=== PATIENT | male | born 1980 | race Caucasian/White ===

== ENCOUNTER → 2017-05-03 | Outpatient (CLI) | payer OTHER ==
[~2017-05-03] MED LIST: DABI150C PO
--- NOTE | 2017-05-03 15:04 | DIAGNOSTIC IMAGING REPORT ---
ULTRASOUND RIGHT VENOUS DOPP LOWER EXT UNILAT CLINICAL HISTORY: Right leg pain and swelling COMPARISON STUDY: No previous studies for comparison. FINDINGS: Real-time and color flow Doppler imaging were performed. Flow was seen within the femoral, popliteal and calf veins with no intraluminal thrombus demonstrated. The saphenous vein is patent. IMPRESSION: No evidence of right lower extremity DVT. Electronically signed by: Alhaji Langley M.D. 05/03/2017 3:03 PM Dictated Date/Time: 05/03/2017 3:03 PM
== END | disposition home or self-care (01) ==
LOC: C.ULTRBC 14:40
PROVIDERS: ATTEND Family Medicine Hospice and Palliative Medicine
DX: M79.89 Other specified soft tissue disorders (principal)

== ENCOUNTER → 2017-05-06 | Outpatient (CLI) | payer OTHER ==
--- NOTE | 2017-05-06 11:14 | DIAGNOSTIC IMAGING REPORT ---
ULTRASOUND VENOUS DOPPLER ULTRASOUND THE RIGHT LOWER EXTREMITY CLINICAL HISTORY: I80.9 RIGHT LEG PAIN AND SWELLING COMPARISON STUDY: No previous studies for comparison. FINDINGS: Real-time and color flow Doppler imaging were performed. Flow was seen within the femoral, popliteal and calf veins with no intraluminal thrombus demonstrated. The saphenous vein is patent. There is a superficial thrombus present within the lateral aspect of the right knee and calf. IMPRESSION: 1. No evidence of right lower extremity DVT 2. Thrombosed superficial varicosity involving the right lateral knee and calf region. Electronically signed by: Alhaji Langley M.D. 05/06/2017 11:12 AM Dictated Date/Time: 05/06/2017 11:11 AM
== END | disposition home or self-care (01) ==
LOC: C.ULTR 10:35
PROVIDERS: ATTEND Internal Medicine
DX: I80.9 Phlebitis and thrombophlebitis of unspecified site (principal)

== ENCOUNTER 2019-03-24 14:46 | Inpatient (IN) ==
[2019-03-24] MEDS ORDERED: MoRPHine SULFATE 4 MG/ML 1 ML CARP\\VIAL IV STA (15:44)
[2019-03-24] MEDS ORDERED: ONDANSETRON 4 MG OD TAB PO STA (15:44)
[2019-03-24 16:31] LABS: Hematocrit (blood only) 41.1 % (42-52); Hemoglobin 14.6 g/dL (14.0-18.0); Mean Corpuscular Hgb Conc 35.5 g/dL (32-36); Mean Corpuscular Volume 82.7 fL (80-100); Mean Platelet Volume 9.3 fL (7.4-10.4); Platelet Count 162 K/uL (130-400); RDW Coefficient of Variation 13.5 % (11.5-14.5); RDW Standard Deviation 40.6 fL (36.4-46.3); Red Blood Count 4.97 M/uL (4.7-6.1); White Blood Count 14.08 K/uL (4.8-10.8)
[2019-03-24 16:48] LABS: Albumin Level 3.1 gm/dl (3.4-5.0); BUN Creatinine Ratio 10.6 (10-20); Calcium 9.4 mg/dl (8.5-10.1); Creatinine Clr Calc Pharmacy 116.1 ml/min; Est GFR (African American) 99.7; Potassium 3.8 mmol/L (3.5-5.1)
[2019-03-24 16:51] LABS: Albumin Globulin Ratio 0.8 (0.9-2); Bilirubin,Total 1.1 mg/dl (0.2-1); Globulin 3.9 gm/dl (2.5-4.0)
[2019-03-24 16:57] LABS: Basophils # (auto) 0.01 K/uL (0-0.2); Basophils % (auto) 0.1 %; Eosinophils # (auto) 0.04 K/uL (0-0.5); Eosinophils % (auto) 0.3 %; Immature Granulocytes # (auto) 0.03 K/uL (0.00-0.02); Immature Granulocytes % (auto) 0.2 %; Lymphocytes % (auto) 3.6 %; Monocytes # (auto) 0.54 K/uL (0.11-0.59); Monocytes % (auto) 3.8 %; Neutrophils # (auto) 12.96 K/uL (1.4-6.5)
[2019-03-24] MEDS ORDERED: PIPERACILL/TAZOBAC CONSULT ACTIVE PRN (17:03)
[2019-03-24] MEDS ORDERED: PIPERACILLIN/TAZOBACTAM 4.5 GM/120 ML BAG IV ONE (17:03)
--- NOTE | 2019-03-24 17:06 | CT Scan Report ---
CT abd pelvis wo con CLINICAL HISTORY: 38 years-old Male presenting with lower abdominal pain, hematuria, eval for stone/a ppe. TECHNIQUE: Multidetector CT of the abdomen and pelvis was performed without the use of intravenous co ntrast. IV contrast: None. One or more dose lowering techniques were used consistent with the princip les of ALARA (as low as reasonably achievable), including automatic exposure control, mA or kV adjust ment to individual patient size, and/or use of iterative reconstruction. COMPARISON: None. CT DOSE (mGy.cm): The estimated cumulative dose is 1140.11 mGycm. 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 Lung bases: Normal heart size. No pericardial or pleural effusion. Extensive bandlike opacities at th e lung bases consistent with atelectasis. Liver: Normal morphology. Normal density. Biliary: No gross biliary ductal dilatation allowing for noncontrast technique. Normal gallbladder. Pancreas: Normal noncontrast appearance. Spleen: Normal noncontrast appearance. Adrenal glands: Normal noncontrast appearance. Kidneys and ureters: Punctate nonobstructing calculus at the upper pole the left kidney. Additional 3 mm nonobstructing left renal calculus at the lower pole and a punctate calculus in the interpolar re gion. Otherwise normal noncontrast appearance of the kidneys. No hydronephrosis. Ureters nondistended . Bladder: Incompletely evaluated secondary to underdistention. Circumferential bladder wall thickening is suggested. Perivesicular fat infiltration including in the prevesical space. The bladder dome is abutted by a large gas-containing 5.6 cm collection described below. Pelvic organs: Normal noncontrast appearance. Bowel: Diverticulosis of the sigmoid colon and distal descending colon. Wall thickening with severe p ericolonic inflammatory change in the mid sigmoid colon. Adjacent 5.6 cm collection along the inferio r and medial aspect of the mid to distal sigmoid colon along the dome of the bladder. This collection primarily contains gas and trace fluid. No bowel obstruction. High density material within the appen diceal base may represent prior contrast or appendicoliths. Trace peritoneal thickening along the michael endix is nonspecific given the normal diameter of the appendix and otherwise normal appearance. Peritoneal cavity: Significant free intraperitoneal gas in the upper abdomen as well as numerous foci of gas throughout the abdomen extending into the superior pelvis at the site of the diverticulitis. Loculated largely gas containing fluid collection in the superior pelvis as mentioned. No significant free intraperitoneal fluid. Fat infiltration and/or fluid along the extraperitoneal pelvis. Lymph nodes: No gross lymphadenopathy allowing for noncontrast technique. Vasculature: Normal noncontrast appearance. Abdominal wall: Normal. Musculoskeletal: Normal. IMPRESSION: 1. Acute complicated diverticulitis of the sigmoid colon, which is perforated. Significant free intr aperitoneal gas extending into the upper abdomen. Surgical consultation is necessary. 2. Loculated large gas containing fluid collection adjacent to the sigmoid colon with only trace flu id. This may represent a sequestered component of the perforation and/or developing abscess. 3. Circumferential bladder wall thickening and extensive perivesicular inflammatory changes likely s econdary. 4. Nonobstructing left nephrolithiasis. These findings were discussed with Dr. Hernandez by Dr. Cabral on 03/24/2019 4:57 PM. Electronically signed by: Froilan Cabral M.D. 03/24/2019 5:05 PM
[2019-03-24] MEDS ORDERED: HYDROmorphone INJ 0.5 MG/0.5 ML SYR IV STA (17:36)
--- NOTE | 2019-03-24 18:10 | History & Physical Report ---
Date of Service March 24, 2019 Assessment & Plan (1) Diverticulitis large intestine: This patient has what appears to be perforated diverticulitis with free air and peritonitis. He appears ill. His white count is elevated. I have discussed options with him that include antibiotics but I do not know that that is appropriate in this particular case due to the significant peritonitis. We are planning for exploratory laparotomy with resection and colostomy formation. I explained to him the procedure and the possible complications and I answered his questions. His was also present. He has signed a consent form. Present on Admission?: Yes History of Present Illness The pain is exacerbated by motion Chief Complaint: Abdominal pain Primary Care Provider: Nathaniel Monreal MD This is a 38-year-old male who presented to the emergency room with a complaint of abdominal pain that began 3 days ago. The most severe discomfort is in the lower abdomen mostly in the midline but he has discomfort throughout. The discomfort is increasing in intensity and is now 10 out of 10. He has had dive rticulitis about a year ago that was treated with antibiotics. He has not had colonoscopy. The pain was associated with nausea but he has not vomited. He thinks that he had a fever but he did not take his temperature. He has had soft stool last night which is unusual for him. His bowel habits are regular and he usually has formed stool. He had no melena or hematochezia. He does have burning on urination that he had not had before. He had dysuria. He is unsure as to whether or not he had hematuria. He thinks there may have been some blood when he last urinated. He denies pneumaturia. Allergies Allergy/AdvReac Type Severity Reaction Status Date / Time No Known Allergies Allergy Verified 03/24/19 16:22 Home Medications Home Medications Medication Instructions Recorded Confirmed Type acetaminophen [Tylenol Extra 1,000 mg PO Q6H PRN 03/24/19 03/24/19 History Strength] ibuprofen [Advil] 400 mg PO Q6H PRN 03/24/19 03/24/19 History Past Med/Surg History Medical History Diverticulitis No chronic diseases present No significant past surgical history Surgical History S/P arthroscopic knee surgery Bilateral S/P tonsillectomy and adenoidectomy Family History Other No pertinent family history in first degree relatives Social History Feels Safe at Home: Yes Smoking Status: Current every day smoker Hx Alcohol Use: Yes Review of Systems Review of Systems: All systems reviewed & are unremarkable except as noted in HPI & below Physical Exam Constitutional: + acute distress and + ill appearing Respiratory: normal respiratory effort, lungs clear to auscultation Cardiovascular: Rate/Rhythm: regular rate and regular rhythm Gastrointestinal (Abdomen): Inspection/Auscultation: + hypoactive bowel sounds; abdomen not distended Percussion/Palpation: + abdomen tender (Exquisite tenderness in the lower abdomen with significant tenderness in the upper abdomen), + guarding and abdomen soft; no abdominal mass Skin: no rashes, warm and dry Lymphatic: no cervical lymphadenopathy Results & Data Vital Signs (Past 12 Hours) Vital Signs Temp Pulse Pulse Resp BP BP Pulse Ox 03/24/19 17:31 85 28 H 142/76 H 95 03/24/19 17:30 89 24 93 03/24/19 17:20 96 H 18 95 03/24/19 17:10 84 18 93 03/24/19 17:08 82 19 93 03/24/19 16:23 85 13 137/77 93 03/24/19 14:51 36.8 C 109 H 20 113/69 96 Laboratory Results 03/24/19 03/24/19 Range/Units 16:14 16:14 WBC 14.08 H (4.8-10.8) K/uL RBC 4.97 (4.7-6.1) M/uL Hgb 14.6 (14.0-18.0) g/dL Hct 41.1 L (42-52) % MCV 82.7 (80-100) fL MCH 29.4 (25-34) pg MCHC 35.5 (32-36) g/dL RDW Std Deviation 40.6 (36.4-46.3) fL RDW Coeff of Sulema 13.5 (11.5-14.5) % Plt Count 162 (130-400) K/uL MPV 9.3 (7.4-10.4) fL Immature Gran % (Auto) 0.2 % Neut % (Auto) 92.0 % Lymph % (Auto) 3.6 % Hardin % (Auto) 3.8 % Eos % (Auto) 0.3 % Baso % (Auto) 0.1 % Immature Gran # (Auto) 0.03 H (0.00-0.02) K/uL Neut # (Auto) 12.96 H (1.4-6.5) K/uL Lymph # (Auto) 0.50 L (1.2-3.4) K/uL Hardin # (Auto) 0.54 (0.11-0.59) K/uL Eos # (Auto) 0.04 (0-0.5) K/uL Baso # (Auto) 0.01 (0-0.2) K/uL Sodium 139 (136-145) mmol/L Potassium 3.8 (3.5-5.1) mmol/L Chloride 108 H (98-107) mmol/L Carbon Dioxide 25 (21-32) mmol/L Anion Gap 6.0 (3-11) BUN 11 (7-18) mg/dl Creatinine 1.08 (0.6-1.4) mg/dl Est Cr Clr Drug Dosing 116.1 ml/min Est GFR ( Amer) 99.7 Est GFR (Non-Af Amer) 86.0 BUN/Creatinine Ratio 10.6 (10-20) Glucose 131 H (70-99) mg/dl Calcium 9.4 (8.5-10.1) mg/dl Total Bilirubin 1.1 H (0.2-1) mg/dl AST 10 L (15-37) U/L ALT 25 (12-78) U/L Alkaline Phosphatase 74 (45-117) U/L Total Protein 7.0 (6.4-8.2) gm/dl Albumin 3.1 L (3.4-5.0) gm/dl Globulin 3.9 (2.5-4.0) gm/dl Albumin/Globulin Ratio 0.8 L (0.9-2) Lipase 60 L (73-393) U/L Diagnostic Findings CT abd pelvis wo con CLINICAL HISTORY: 38 years-old Male presenting with lower abdominal pain, hematuria, eval for stone/appe. TECHNIQUE: Multidetector CT of the abdomen and pelvis was performed without the use of intravenous contrast. IV contrast: None. One or more dose lowering techniques were used consistent with the principles of ALARA (as low as reasonably achievable), including automatic exposure control, mA or kV adjustment to individual patient size, and/or use of iterative reconstruction. COMPARISON: None. CT DOSE (mGy.cm): The estimated cumulative dose is 1140.11 mGycm. 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 Lung bases: Normal heart size. No pericardial or pleural effusion. Extensive bandlike opacities at the lung bases consistent with atelectasis. Liver: Normal morphology. Normal density. Biliary: No gross biliary ductal dilatation allowing for noncontrast technique. Normal gallbladder. Pancreas: Normal noncontrast appearance. Spleen: Normal noncontrast appearance. Adrenal glands: Normal noncontrast appearance. Kidneys and ureters: Punctate nonobstructing calculus at the upper pole the left kidney. Additional 3 mm nonobstructing left renal calculus at the lower pole and a punctate calculus in the interpolar region. Otherwise normal noncontrast appearance of the kidneys. No hydronephrosis. Ureters nondistended. Bladder: Incompletely evaluated secondary to underdistention. Circumferential bladder wall thickening is suggested. Perivesicular fat infiltration including in the prevesical space. The bladder dome is abutted by a large gas-containing 5.6 cm collection described below. Pelvic organs: Normal noncontrast appearance. Bowel: Diverticulosis of the sigmoid colon and distal descending colon. Wall thickening with severe pericolonic inflammatory change in the mid sigmoid colon. Adjacent 5.6 cm collection along the inferior and medial aspect of the mid to distal sigmoid colon along the dome of the bladder. This collection primarily contains gas and trace fluid. No bowel obstruction. High density material within the appendiceal base may represent prior contrast or appendicoliths. Trace peritoneal thickening along the appendix is nonspecific given the normal diameter of the appendix and otherwise normal appearance. Peritoneal cavity: Significant free intraperitoneal gas in the upper abdomen as well as numerous foci of gas throughout the abdomen extending into the superior pelvis at the site of the diverticulitis. Loculated largely gas containing fluid collection in the superior pelvis as mentioned. No significant free intraperitoneal fluid. Fat infiltration and/or fluid along the extraperitoneal pelvis. Lymph nodes: No gross lymphadenopathy allowing for noncontrast technique. Vasculature: Normal noncontrast appearance. Abdominal wall: Normal. Musculoskeletal: Normal. IMPRESSION: 1. Acute complicated diverticulitis of the sigmoid colon, which is perforated. Significant free intraperitoneal gas extending into the upper abdomen. Surgical consultation is necessary. 2. Loculated large gas containing fluid collection adjacent to the sigmoid colon with only trace fluid. This may represent a sequestered component of the perforation and/or developing abscess. 3. Circumferential bladder wall thickening and extensive perivesicular inflammatory changes likely secondary. 4. Nonobstructing left nephrolithiasis. (1) Diverticulitis large intestine Diverticulitis bleeding: without bleeding Diverticulitis complication: with perforation and abscess Qualified Code(s): K57.20 - Diverticulitis of large intestine with perforation and abscess without bleeding
[2019-03-24] MEDS ORDERED: MIDAZOLAM HCL 1 MG/ML 2ML VIAL ONE (18:26)
[2019-03-24] MEDS ORDERED: fentaNYL citrate 100 MCG/2 ML VIAL ONE ×2 (18:27→21:32)
--- NOTE | 2019-03-24 18:43 | Anesthesiology Consultation ---
Date of Service March 24, 2019 Assessment & Plan (1) Encounter for pre-operative examination: Chart Review Chart Review: Acceptable Risk for Surgery and Patient NOT seen in Pre Admission Testing Consults Requested none History Surgery Operation Date: 03/24/19 18:15 Proposed Procedures p Exploratory Laparotomy - Nicola Powers MD s Bowel Resection - Nicola Powers MD Height/Weight Height: 6 ft Weight: 107 kg Allergies Allergy/AdvReac Type Severity Reaction Status Date / Time No Known Allergies Allergy Verified 03/24/19 18:42 Medications Home Medications Medication Instructions Recorded Confirmed Last Taken acetaminophen [Tylenol Extra 1,000 mg PO Q6H PRN 03/24/19 03/24/19 Unknown Strength] ibuprofen [Advil] 400 mg PO Q6H PRN 03/24/19 03/24/19 Unknown NPO Date Last Intake of Fluids: 03/24/19 Time Last Intake of Fluids: 15:00 Date Last Intake of Solids: 03/23/19 Time Last Intake of Solids: 20:00 Past Medical History Medical History Diverticulitis No chronic diseases present No significant past surgical history history of blood clots Exercise / Class Metabolic Activity II 4-5 Yardwork/Stairs/Walk up hill Past Family History Family History Other No pertinent family history in first degree relatives Past Surgical History Surgical History S/P arthroscopic knee surgery Bilateral S/P tonsillectomy and adenoidectomy Past Anesthesia History No Hx of Anesthesia Complications and No Family Hx of Anesthesia Complications History of PONV No Hx of PONV and No Hx of Motion Sickness Social History Smoking Status: Current every day smoker Hx Alcohol Use: Yes Hx Substance Use: No Physical Exam Vital Signs Last Vital Signs Temp 37.2 C 03/24/19 18:35 Pulse 97 H 03/24/19 18:35 Resp 20 03/24/19 18:35 BP 132/73 03/24/19 18:35 Pulse Ox 96 03/24/19 18:35 Testing Laboratory Results 03/24/19 16:14 03/24/19 16:14
[2019-03-24] MEDS ORDERED: ePHEDrine sulfate 50 MG/ML AMP IV PRN (18:46)
[2019-03-24] MEDS ORDERED: ONDANSETRON INJ 2 MG/ML 2 ML VIAL IV PRN ×2 (18:46→22:24)
[2019-03-24] MEDS ORDERED: HYDROmorphone INJ 2 MG/ML SYR/VIAL IV PRN (18:46)
[2019-03-24] MEDS ORDERED: fentaNYL citrate 100 MCG/2 ML VIAL IV PRN (18:46)
[2019-03-24] MEDS ORDERED: ATROPINE SULFATE 0.1 MG/ML 10ML SYR IV PRN (18:46)
[2019-03-24] MEDS ORDERED: ALBUMIN HUMAN 5% 12.5 GM/250 ML VIAL IV ONE (18:52)
--- NOTE | 2019-03-24 19:11 | Emergency Department Note ---
Entered by Lam Ramon acting as a scribe for History of Present Illness General Chief complaint: Abdominal Pain Stated complaint: ABDOMINAL PAIN Source: patient History of Present Illness Provider complaint: Abdominal pain Onset (ago): day(s) 3 Location: abdomen Radiation: non-radiation Pain Consistency: + constant Maximum Pain Intensity: 8 Quality: + sharp and + other (Cramping) Relieved By: + none Exacerbated By: + none Associated symptoms: + fever/chills, + loss of appetite and + other (Positive urinary symptoms); no nausea/vomiting The patient is a 38 year old male who presents to the Emergency Room with complaints of constant abdominal pain that started about 3 days ago. The patient states the pain is from his groin up to his rib cage more in the midline of the abdomen. He describes the upper abdominal pain as sharp, while the lower abdominal pain is more of a cramping sensation that is worse with moving his bowels. The patient is also having urinary symptoms including hematuria and dysuria. The patient has not been eating as much as he normally does, but when he does eat his symptoms are unaffected. He also has had intermittent fevers since the start of his abdominal symptoms. He denies any vomiting or diarrhea. He has a history of diverticulitis and he still has his appendix. Home Medications Home Medications Medication Instructions Recorded Confirmed Type acetaminophen [Tylenol Extra 1,000 mg PO Q6H PRN 03/24/19 03/24/19 History Strength] ibuprofen [Advil] 400 mg PO Q6H PRN 03/24/19 03/24/19 History Allergies Allergy/AdvReac Type Severity Reaction Status Date / Time No Known Allergies Allergy Verified 03/24/19 18:42 Past Med/Surg History Medical History Diverticulitis No chronic diseases present No significant past surgical history Surgical History S/P arthroscopic knee surgery Bilateral S/P tonsillectomy and adenoidectomy Family History Other No pertinent family history in first degree relatives Social History Feels Safe at Home: Yes Smoking Status: Current every day smoker Hx Alcohol Use: Yes Hx Substance Use: No Review of Systems See HPI for pertinent positives & negatives. and A total of 10 systems reviewed and were otherwise negative Physical Exam Vital Signs Vital Signs - 24 hr 03/24/19 14:51 03/24/19 16:23 03/24/19 17:08 Temperature 36.8 C Temperature Source Oral Sepsis Recent Fever Within 48 Hours No Sepsis New/Unexplained Change in Mental Status No Sepsis Action Taken by Nursing No Action Required Pulse Rate 109 H 82 Pulse Rate [Finger] 85 Pulse Rate from SpO2 Sensor 82 Pulse Rhythm [Finger] Pulse Strength [Finger] Respiratory Rate 20 13 19 Respiratory Effort / Characteristics Respiratory Depth Blood Pressure 113/69 Blood Pressure [Right Arm] 137/77 Blood Pressure Mean 83 Blood Pressure Mean [Right Arm] 97 Blood Pressure Position [Right Arm] Pulse Oximetry 96 93 93 Oxygen Delivery Method Room Air Room Air 03/24/19 17:10 03/24/19 17:20 03/24/19 17:30 Temperature Temperature Source Sepsis Recent Fever Within 48 Hours Sepsis New/Unexplained Change in Mental Status Sepsis Action Taken by Nursing Pulse Rate 84 96 H 89 Pulse Rate [Finger] Pulse Rate from SpO2 Sensor 84 93 H 81 Pulse Rhythm [Finger] Pulse Strength [Finger] Respiratory Rate 18 18 24 Respiratory Effort / Characteristics Respiratory Depth Blood Pressure Blood Pressure [Right Arm] Blood Pressure Mean Blood Pressure Mean [Right Arm] Blood Pressure Position [Right Arm] Pulse Oximetry 93 95 93 Oxygen Delivery Method 03/24/19 17:31 03/24/19 17:32 03/24/19 17:40 Temperature Temperature Source Sepsis Recent Fever Within 48 Hours Sepsis New/Unexplained Change in Mental Status Sepsis Action Taken by Nursing Pulse Rate 85 103 H 85 Pulse Rate [Finger] Pulse Rate from SpO2 Sensor 84 102 H 85 Pulse Rhythm [Finger] Pulse Strength [Finger] Respiratory Rate 28 H 19 23 Respiratory Effort / Characteristics Respiratory Depth Blood Pressure 142/76 H Blood Pressure [Right Arm] Blood Pressure Mean 98 Blood Pressure Mean [Right Arm] Blood Pressure Position [Right Arm] Pulse Oximetry 95 96 96 Oxygen Delivery Method 03/24/19 17:50 03/24/19 18:00 03/24/19 18:10 Temperature Temperature Source Sepsis Recent Fever Within 48 Hours Sepsis New/Unexplained Change in Mental Status Sepsis Action Taken by Nursing Pulse Rate 89 89 88 Pulse Rate [Finger] Pulse Rate from SpO2 Sensor 89 87 86 Pulse Rhythm [Finger] Pulse Strength [Finger] Respiratory Rate 19 17 14 Respiratory Effort / Characteristics Respiratory Depth Blood Pressure 136/79 Blood Pressure [Right Arm] Blood Pressure Mean 98 Blood Pressure Mean [Right Arm] Blood Pressure Position [Right Arm] Pulse Oximetry 97 96 98 Oxygen Delivery Method 03/24/19 18:15 03/24/19 18:33 03/24/19 18:35 Temperature 37.2 C Temperature Source Oral Sepsis Recent Fever Within 48 Hours Sepsis New/Unexplained Change in Mental Status Sepsis Action Taken by Nursing Pulse Rate Pulse Rate [Finger] 88 97 H Pulse Rate from SpO2 Sensor Pulse Rhythm [Finger] Regular Pulse Strength [Finger] Normal Respiratory Rate 16 16 20 Respiratory Effort / Characteristics Non-Labored Spontaneous Respiratory Depth Normal Blood Pressure Blood Pressure [Right Arm] 136/79 132/73 Blood Pressure Mean Blood Pressure Mean [Right Arm] 98 92 Blood Pressure Position [Right Arm] Lying Pulse Oximetry 97 97 96 Oxygen Delivery Method Room Air Room Air Room Air Constitutional: Vital signs reviewed. Eyes: Pupils are equal round reactive to light. Conjunctiva are noninjected. ENT: Pharynx is clear without erythema or exudate. Mucous membranes are moist. Neck supple without meningeal signs. Respiratory: Clear to auscultation bilaterally. Breath sounds are equal bilaterally. Cardiovascular: Regular rate and rhythm. No rubs or gallops. GI: Soft, nondistended. Mild diffuse tenderness, greatest in the RLQ. Guarding. Bowel sounds are present. Musculoskeletal: No peripheral edema. No lower extremity tenderness. Integumentary: No cyanosis. Neurological: The patient is awake and alert. No focal deficits. Psychiatric: Normal affect. Course 1538: Past medical records reviewed. The patient was evaluated in room C12B, and a complete history and physical examination were performed. 1719: I spoke to Dr. Powers - [facility] about the patient's case and he is going to evaluate the patient. 1755: I reevaluated the patient and he is stable. He informed me that Dr. Powers is going to accept him once a room is open. Consultations Consultation #1: I spoke to Dr. Powers - [facility] about the patient's case and he is going to evaluate the patient. Time: 17:19 Administered Medications Discontinued Medications Hydromorphone HCl (Dilaudid) 0.5 mg IV NOW STA Stop: 03/24/19 17:37 Last Admin: 03/24/19 17:42 Dose: 0.5 mg Documented by: [id number] Piperacillin Sod/Tazobactam Sod (Zosyn) 4.5 gm in 120 mls @ 240 mls/hr IV NOW ONE Stop: 03/24/19 17:32 Last Infusion: 03/24/19 17:42 Dose: 0 mls/hr Documented by: [id number] Admin: 03/24/19 17:07 Dose: 240 mls/hr Documented by: [id number] Morphine Sulfate (Morphine Sulfate) 4 mg IV NOW STA Stop: 03/24/19 15:45 Last Admin: 03/24/19 16:20 Dose: 4 mg Documented by: [id number] Ondansetron HCl (Zofran Odt) 4 mg PO NOW STA Stop: 03/24/19 15:45 Last Admin: 03/24/19 16:20 Dose: 4 mg Documented by: [id number] Medical Decision Making Differential Diagnosis Differential Diagnosis includes: Appendicitis, Diverticulitis, Perforation, Ab scess, Pancreatitis, Kidney stone, and UTI, amongst others. Medical Records Attestation: I reviewed the patient's medical records. The patient was seen here in December for a corneal abrasion. Home Medications Current Medication List: was personally reviewed by me Laboratory Data Attestation: I reviewed the patient's lab results. Result diagrams: 03/24/19 16:14 03/24/19 16:14 Lab Results 03/24/19 03/24/19 Range/Units 16:14 16:14 WBC 14.08 H (4.8-10.8) K/uL RBC 4.97 (4.7-6.1) M/uL Hgb 14.6 (14.0-18.0) g/dL Hct 41.1 L (42-52) % MCV 82.7 (80-100) fL MCH 29.4 (25-34) pg MCHC 35.5 (32-36) g/dL RDW Std Deviation 40.6 (36.4-46.3) fL RDW Coeff of Sulema 13.5 (11.5-14.5) % Plt Count 162 (130-400) K/uL MPV 9.3 (7.4-10.4) fL Immature Gran % (Auto) 0.2 % Neut % (Auto) 92.0 % Lymph % (Auto) 3.6 % Sawyer % (Auto) 3.8 % Eos % (Auto) 0.3 % Baso % (Auto) 0.1 % Immature Gran # (Auto) 0.03 H (0.00-0.02) K/uL Neut # (Auto) 12.96 H (1.4-6.5) K/uL Lymph # (Auto) 0.50 L (1.2-3.4) K/uL Sawyer # (Auto) 0.54 (0.11-0.59) K/uL Eos # (Auto) 0.04 (0-0.5) K/uL Baso # (Auto) 0.01 (0-0.2) K/uL Sodium 139 (136-145) mmol/L Potassium 3.8 (3.5-5.1) mmol/L Chloride 108 H (98-107) mmol/L Carbon Dioxide 25 (21-32) mmol/L Anion Gap 6.0 (3-11) BUN 11 (7-18) mg/dl Creatinine 1.08 (0.6-1.4) mg/dl Est Cr Clr Drug Dosing 116.1 ml/min Est GFR ( Amer) 99.7 Est GFR (Non-Af Amer) 86.0 BUN/Creatinine Ratio 10.6 (10-20) Glucose 131 H (70-99) mg/dl Calcium 9.4 (8.5-10.1) mg/dl Total Bilirubin 1.1 H (0.2-1) mg/dl AST 10 L (15-37) U/L ALT 25 (12-78) U/L Alkaline Phosphatase 74 (45-117) U/L Total Protein 7.0 (6.4-8.2) gm/dl Albumin 3.1 L (3.4-5.0) gm/dl Globulin 3.9 (2.5-4.0) gm/dl Albumin/Globulin Ratio 0.8 L (0.9-2) Lipase 60 L (73-393) U/L Imaging Data Radiologist's Impression: Radiology results as stated below per my review and the radiologist's interpretation: CT abd pelvis wo con CLINICAL HISTORY: 38 years-old Male presenting with lower abdominal pain, hemat uria, eval for stone/appe. TECHNIQUE: Multidetector CT of the abdomen and pelvis was performed without the use of intravenous contrast. IV contrast: None. One or more dose lowering techniques were used consistent with the principles of ALARA (as low as reasonably achievable), including automatic exposure control, mA or kV adjustment to individual patient size, and/or use of iterative reconstruction. COMPARISON: None. CT DOSE (mGy.cm): The estimated cumulative dose is 1140.11 mGycm. FINDINGS: Pot Room Tapper topogram: Unremarkable. Lung bases: Normal heart size. No pericardial or pleural effusion. Extensive bandlike opacities at the lung bases consistent with atelectasis. Liver: Normal morphology. Normal density. Biliary: No gross biliary ductal dilatation allowing for noncontrast technique. Normal gallbladder. Pancreas: Normal noncontrast appearance. Spleen: Normal noncontrast appearance. Adrenal glands: Normal noncontrast appearance. Kidneys and ureters: Punctate nonobstructing calculus at the upper pole the left kidney. Additional 3 mm nonobstructing left renal calculus at the lower pole and a punctate calculus in the interpolar region. Otherwise normal noncontrast appearance of the kidneys. No hydronephrosis. Ureters nondistended. Bladder: Incompletely evaluated secondary to underdistention. Circumferential bladder wall thickening is suggested. Perivesicular fat infiltration including in the prevesical space. The bladder dome is abutted by a large gas-containing 5.6 cm collection described below. Pelvic organs: Normal noncontrast appearance. Bowel: Diverticulosis of the sigmoid colon and distal descending colon. Wall thickening with severe pericolonic inflammatory change in the mid sigmoid colon. Adjacent 5.6 cm collection along the inferior and medial aspect of the mid to distal sigmoid colon along the dome of the bladder. This collection primarily contains gas and trace fluid. No bowel obstruction. High density material within the appendiceal base may represent prior contrast or appendicoliths. Trace peritoneal thickening along the appendix is nonspecific given the normal diameter of the appendix and otherwise normal appearance. Peritoneal cavity: Significant free intraperitoneal gas in the upper abdomen as well as numerous foci of gas throughout the abdomen extending into the superior pelvis at the site of the diverticulitis. Loculated largely gas containing fluid collection in the superior pelvis as mentioned. No significant free intraperiton eal fluid. Fat infiltration and/or fluid along the extraperitoneal pelvis. Lymph nodes: No gross lymphadenopathy allowing for noncontrast technique. Vasculature: Normal noncontrast appearance. Abdominal wall: Normal. Musculoskeletal: Normal. IMPRESSION: 1. Acute complicated diverticulitis of the sigmoid colon, which is perforated. Significant free intraperitoneal gas extending into the upper abdomen. Surgical consultation is necessary. 2. Loculated large gas containing fluid collection adjacent to the sigmoid colon with only trace fluid. This may represent a sequestered component of the perforation and/or developing abscess. 3. Circumferential bladder wall thickening and extensive perivesicular inflammatory changes likely secondary. 4. Nonobstructing left nephrolithiasis. These findings were discussed with Dr. Hernandez by Dr. Cabral on 03/24/2019 4:57 PM. Electronically signed by: Froilan Cabral M.D. 03/24/2019 5:05 PM Blood Pressure Blood Pressure Findings: Normal blood pressure MDM Narrative I did evaluate the patient as noted above. The patient is presenting with abdominal pain for the past 3 days. He has tender and has some guarding on examination. IV access was established. I did treat the patient with IV morphine and Zofran. The patient was placed on a continuous monitoring specialist. I did order a urine analysis. He did not provide us with a sample. I did order and review the patient's blood work as noted in the electronic medical record. His white count is elevated. LFTs are unremarkable. I did order a stat CT of the abdomen and pelvis. I did review the images myself as well as the radiology report as described above. He does have acute sigmoid diverticulitis with perforation and free intraperitoneal air as well as a fluid collection concerning for abscess. I did discuss the test results with the patient. I did treat the patient with Dilaudid IV. He was also given Zosyn IV. Surgery was informed of the patient. The surgeon was in the OR and came to evaluate the patient. He was taken to the OR for operative care. Impression & Plan Diverticulitis large intestine Critical Care Time Critical Care Time: Yes Total Critical Care Time: 35 I have personally spent greater 35 minutes of critical care time in the direct management of this patient. This includes bedside care, interpretation of diagnostic studies, and testing, discussion with consultants, patient, and family members, and other required patient management activities. This 35 minutes is in excess of all separately billable procedures. Discharge Plan Visit Data Chief Complaint: Abdominal Pain Stated Complaint: ABDOMINAL PAIN ED Provider: Jordi Hernandez Discharge Problem: Diverticulitis large intestine Patient Disposition: Being Evaluated by Surgeon Discharge Instructions Interventions: ED Discharge Assessment Last Done: 03/24/19 18:33 Forms Stand Alone Forms: Call Back Authorization, [facility] Prescriptions Prescriptions: No Action acetaminophen [Tylenol Extra Strength] 500 mg Tablet 1,000 mg PO Q6H PRN (Reason: Pain) RF: 0 ibuprofen [Advil] 200 mg Tablet 400 mg PO Q6H PRN (Reason: Pain) RF: 0 Referrals Referrals: Nathaniel Monreal III, MD [Primary Care Provider] - Discharge Problem: Diverticulitis large intestine Qualifiers: Diverticulitis bleeding: without bleeding Diverticulitis complication: with perforation and abscess Qualified Code(s): K57.20 - Diverticulitis of large intestine with perforation and abscess without bleeding The scribe's documentation has been prepared under my direction and personally reviewed by me in its entirety. I confirm that the note above accurately reflects all work, treatment, procedures, and medical decision making performed by me.
[2019-03-24] MEDS ORDERED: HYDROmorphone INJ 2 MG/ML SYR/VIAL ONE (19:38)
[2019-03-24] MEDS ORDERED: PHENYLEPHRINE 100MCG/ML 5ML SYR ONE (20:23)
[2019-03-24] MEDS ORDERED: DEXAMETHASONE SOD INJ 4 MG/ML VIAL ONE (20:23)
[2019-03-24] MEDS ORDERED: PROPOFOL IV EMULSION 10 MG/ML 20 ML VIAL IV ONE (20:23)
[2019-03-24] MEDS ORDERED: ONDANSETRON INJ 2 MG/ML 2 ML VIAL ONE (20:23)
[2019-03-24] MEDS ORDERED: SUCCINYLCHOLINE CHLORIDE 20 MG/ML 10 ML VIAL ONE (20:23)
[2019-03-24] MEDS ORDERED: GLYCOPYRROLATE 0.2 MG/ML VIAL ONE (20:24)
[2019-03-24] MEDS ORDERED: PHENYLEPHRINE HCL 10 MG/ML VIAL ONE (20:24)
[2019-03-24] MEDS ORDERED: ROCURONIUM BROMIDE 10 MG/ML 5 ML VIAL ONE (20:24)
[2019-03-24] MEDS ORDERED: ALBUTEROL HFA INHALER 8.5 GM ONE (21:59)
[2019-03-24] MEDS ORDERED: NALOXONE HCL 0.4 MG/1 ML VIAL/CARP IV PRN (22:29)
--- NOTE | 2019-03-24 23:03 | Anesthesiology Progress Note ---
Date of Service March 24, 2019 Anesthesia Post Procedure Vital Signs Vital Signs: Temp Pulse Pulse Resp BP BP Pulse Ox 03/24/19 22:35 108 H 16 149/84 H 98 03/24/19 22:26 37.3 C 103 H 16 98 03/24/19 18:35 37.2 C 97 H 20 132/73 96 03/24/19 18:33 16 97 03/24/19 18:15 88 16 136/79 97 03/24/19 18:10 88 14 98 03/24/19 18:00 89 17 136/79 96 03/24/19 17:50 89 19 97 03/24/19 17:40 85 23 96 03/24/19 17:32 103 H 19 96 03/24/19 17:31 85 28 H 142/76 H 95 03/24/19 17:30 89 24 93 03/24/19 17:20 96 H 18 95 03/24/19 17:10 84 18 93 03/24/19 17:08 82 19 93 03/24/19 16:23 85 13 137/77 93 03/24/19 14:51 36.8 C 109 H 20 113/69 96 Pain Intensity Abdomen: Pain Intensity: 5 Transfer of Care Handoff Completed per policy Notes Mental Status: alert / awake / arousable and participated in evaluation Patient Amnestic to Procedure: Yes Nausea / Vomiting: adequately controlled Pain: adequately controlled Airway Patency, RR, SpO2: stable & adequate BP & HR: stable & adequate Hydration State: stable & adequate Anesthetic Complications: no major complications apparent and Pt Satisfied with anesthetic care
[2019-03-25] MEDS ORDERED: HYDROmorphone INJ 1 MG/ML SYRINGE IV STA (00:10)
[2019-03-25] MEDS ORDERED: PIPERACILL/TAZOBAC CONSULT ACTIVE PRN (00:15)
[2019-03-25] MEDS: SODIUM CHLORIDE 0.9% 1000ML 1,000 ML IV SCH ×5 (00:15→23:30)
[2019-03-25] MEDS ORDERED: HYDROmorphone INJ 1 MG/ML SYRINGE ONE (00:15)
[2019-03-25] MEDS ORDERED: PIPERACILLIN/TAZOBACTAM 3.375 GM in DEXTROSE 5% 100 ML IV ONE (00:30)
--- NOTE | 2019-03-25 00:35 | Operative Report ---
DATE OF OPERATION: 03/24/2019 PREOPERATIVE DIAGNOSIS: Perforation of sigmoid diverticulitis. POSTOPERATIVE DIAGNOSIS: Perforation of sigmoid diverticulitis. PROCEDURE: Exploratory laparotomy with sigmoid colon resection and formation of colostomy with mobilization of the splenic flexure. SURGEON: Nicola Powers MD FLOWER STRIPPER: Kylie Ingram MD FINDINGS: Upon opening the abdomen, there was a large amount of purulent fluid. This was cultured. In the sigmoid colon, there was an approximate 10-12 cm section near the descending sigmoid junction that was inflamed, hyperemic with surrounding erythema and induration and thickening of the mesentery and of the epiploica. I did not identify a specific hole in the colon. The bowel proximal to that and the bowel distal beginning just above the sacral promontory were normal. The remainder of the colon appeared normal. TECHNIQUE: The patient was given a general anesthetic and the area was prepped and draped in the usual sterile fashion. Vertical midline incision was made, carried down through the subcutaneous tissue in the midline. The fascia was opened in the midline. The posterior fascia and peritoneum were identified individually and incised and the abdomen was entered. The layers were opened along the length of the skin incision. I did have to increase the skin incision superiorly at one point. The small bowel was packed towards the right side of the abdomen and the second bowel was easily identified. This was away from the left lateral abdominal wall dividing at the line of Toldt. I then worked distally dividing the peritoneal attachments on the left, then on the right, which allowed better mobilization of the distal bowel. I then worked up along the distal descending colon it from the line of Toldt. This allowed for better mobilization of the colon. I was then able to identify what appeared and felt to be normal bowel. The mesentery was thickened at that point, but I the mesentery away from the colon wall and divided it. I then worked down along the sigmoid mesocolon towards the sacral promontory using a clamp-clamp, divide, and ligate technique ligating with 2-0 silk sutures. I then realized that I was below the second bowel and down to normal bowel just above the sacral promontory. The mesocolon was away from the wall there and was divided using the TA stapler. The specimen was removed. I then used 2-0 Prolene in the edge of the staple line on the left side and tacked it to the lateral pelvic wall. There was remaining sigmoid colon to help identify it during reversal of the colostomy. I then had to mobilize the remainder of the descending colon up around the splenic flexure, mobilizing the splenic flexure which allowed for better length for formation of the colostomy. At that point, it appeared that there was still some thickened bowel that I had not removed. It was only about 4-5 cm. The mesentery was out to normal bowel and the bowel was again divided using the LINUS stapler and the intervening mesentery was divided using a clamp-clamp, divide, and ligate technique using 2-0 silk sutures. The site for the colostomy was then chosen. A small area of skin was removed in a circular fashion. That had to be increased. The cutaneous tissue was divided using blunt and cautery dissection down to the fascia, which was opened with a cruciate incision. The muscle was split. The posterior sheath and peritoneum were opened and it was stretched to admit my 2 fingers. I had to take a little more skin and divide the mesentery further due to the thickening of the fat, but was eventually able to bring the colostomy out through that opening and it was felt that there was enough to perform a Nadia colostomy. The abdomen was then irrigated with a copious amount of saline solution and that was removed. A 19-Malawian drain was brought out through a separate stab incision on the right at the site of the abdomen. It was placed into the pelvis and secured with a 3-0 nylon. The vertical midline incision fascia was closed with a running #1 PDS and the skin was closed with intermittent charles left to gap. The staple line on the colostomy was then removed and the colostomy was matured with 3-0 Vicryl interrupted sutures in a Nadia redding fashion. The area was cleansed, dried, dressing placed, and the ostomy appliance applied. Estimated blood loss was 300 mL. Sponge, needle, and instrument counts were correct prior to closure. The patient tolerated the surgical procedure without complication and was transferred to recovery. I attest to the content of the Intraoperative Record and any orders documented therein. Any exceptions are noted below. SYLD
[2019-03-25] MEDS: HYDROmorphone HCL 0.5MG/ML 50 ML CASSETTE IV PRN (00:42)
[2019-03-25] MEDS: ALUMINUM/MAGNESIUM SUSP 30 ML UDC NG SCH ×5 (00:51→23:30)
[2019-03-25 06:53] LABS: Hematocrit (blood only) 37.7 % (42-52); Hemoglobin 13.1 g/dL (14.0-18.0); Immature Granulocytes # (auto) 0.02 K/uL (0.00-0.02); Immature Granulocytes % (auto) 0.2 %; Lymphocytes # (auto) 0.36 K/uL (1.2-3.4); Lymphocytes % (auto) 3.2 %; Mean Corpuscular Hgb Conc 34.7 g/dL (32-36); Mean Corpuscular Volume 82.5 fL (80-100); Mean Platelet Volume 9.2 fL (7.4-10.4); Monocytes # (auto) 0.36 K/uL (0.11-0.59); Monocytes % (auto) 3.2 %; Neutrophils # (auto) 10.68 K/uL (1.4-6.5); Neutrophils % (auto) 93.4 %; Platelet Count 180 K/uL (130-400); RDW Coefficient of Variation 13.5 % (11.5-14.5); RDW Standard Deviation 41.2 fL (36.4-46.3); Red Blood Count 4.57 M/uL (4.7-6.1); White Blood Count 11.42 K/uL (4.8-10.8)
[2019-03-25 06:59] LABS: INR 1.1 (0.9-1.1); Partial Thromboplastin Ratio 1.2; Partial Thromboplastin Time 32.9 Seconds (21.0-31.0); Prothrombin Time 11.4 Seconds (9.0-12.0)
[2019-03-25] MEDS: PIPERACILLIN/TAZOBACTAM 3.375 GM in DEXTROSE 5% 100 ML IV SCH ×3 (07:38→23:30)
--- NOTE | 2019-03-25 08:26 | Surgery Progress Note ---
Date of Service March 25, 2019 Assessment & Plan (1) Diverticulitis large intestine: Postoperative day #1 status post sigmoid colon resection with formation of colostomy for perforated diverticulitis with peritonitis Stable Begin to get out of bed today Continue analgesics with [employer] PERSON White blood cell count has decreased Continue NG tube Can discontinue Garcia Present on Admission?: Yes Subjective Postoperative day #1, status post exploratory laparotomy, sigmoid colon resection, formation of colostomy, mobilization of splenic flexure Pain is controlled with SHIP [employer]ARD [employer] PERSON Has less pain than preop Denies nausea and vomiting ARIES has serosanguineous fluid NG has minimal output Physical Exam Gastrointestinal (Abdomen): Inspection/Auscultation: + abdominal surgical incision (Dressing clean and dry); abdomen not distended Percussion/Palpation: + abdomen tender and abdomen soft Colostomy appears healthy Results & Data Vital Signs (Past 12 Hours) Vital Signs Temp Pulse Pulse Resp BP BP Pulse Ox 03/25/19 07:13 37 C 113 H 18 121/70 94 03/25/19 04:00 94 03/25/19 02:54 36.8 C 104 H 16 120/75 96 03/25/19 01:45 36.7 C 111 H 16 126/80 96 03/25/19 00:55 94 03/25/19 00:45 36.5 C 107 H 16 141/78 H 97 03/25/19 00:15 36.7 C 108 H 16 134/82 97 03/24/19 23:24 37.5 C 103 H 18 143/81 H 94 03/24/19 23:21 37.5 C 108 H 18 142/88 H 03/24/19 23:08 113 H 16 134/81 95 03/24/19 23:03 114 H 16 145/79 H 97 03/24/19 23:01 102 H 16 144/84 H 97 03/24/19 22:35 108 H 16 149/84 H 98 03/24/19 22:26 37.3 C 103 H 16 98 Laboratory Results 03/25/19 03/25/19 03/24/19 Range/Units 06:18 06:18 16:14 WBC 11.42 H 14.08 H (4.8-10.8) K/uL RBC 4.57 L 4.97 (4.7-6.1) M/uL Hgb 13.1 L 14.6 (14.0-18.0) g/dL Hct 37.7 L 41.1 L (42-52) % MCV 82.5 82.7 (80-100) fL MCH 28.7 29.4 (25-34) pg MCHC 34.7 35.5 (32-36) g/dL RDW Std Deviation 41.2 40.6 (36.4-46.3) fL RDW Coeff of Sulema 13.5 13.5 (11.5-14.5) % Plt Count 180 162 (130-400) K/uL MPV 9.2 9.3 (7.4-10.4) fL Immature Gran % (Auto) 0.2 0.2 % Neut % (Auto) 93.4 92.0 % Lymph % (Auto) 3.2 3.6 % [place] % (Auto) 3.2 3.8 % Eos % (Auto) 0.0 0.3 % Baso % (Auto) 0.0 0.1 % Immature Gran # (Auto) 0.02 0.03 H (0.00-0.02) K/uL Neut # (Auto) 10.68 H 12.96 H (1.4-6.5) K/uL Lymph # (Auto) 0.36 L 0.50 L (1.2-3.4) K/uL [place] # (Auto) 0.36 0.54 (0.11-0.59) K/uL Eos # (Auto) 0.00 0.04 (0-0.5) K/uL Baso # (Auto) 0.00 0.01 (0-0.2) K/uL PT 11.4 (9.0-12.0) Seconds INR 1.1 (0.9-1.1) APTT 32.9 H (21.0-31.0) Seconds PTT Ratio 1.2 Sodium (136-145) mmol/L Potassium (3.5-5.1) mmol/L Chloride (98-107) mmol/L Carbon Dioxide (21-32) mmol/L Anion Gap (3-11) BUN (7-18) mg/dl Creatinine (0.6-1.4) mg/dl Est Cr Clr Drug Dosing ml/min Est GFR ( Amer) Est GFR (Non-Af Amer) BUN/Creatinine Ratio (10-20) Glucose (70-99) mg/dl Calcium (8.5-10.1) mg/dl Total Bilirubin (0.2-1) mg/dl AST (15-37) U/L ALT (12-78) U/L Alkaline Phosphatase (45-117) U/L Total Protein (6.4-8.2) gm/dl Albumin (3.4-5.0) gm/dl Globulin (2.5-4.0) gm/dl Albumin/Globulin Ratio (0.9-2) Lipase (73-393) U/L 03/24/19 Range/Units 16:14 WBC (4.8-10.8) K/uL RBC (4.7-6.1) M/uL Hgb (14.0-18.0) g/dL Hct (42-52) % MCV (80-100) fL MCH (25-34) pg MCHC (32-36) g/dL RDW Std Deviation (36.4-46.3) fL RDW Coeff of Sulema (11.5-14.5) % Plt Count (130-400) K/uL MPV (7.4-10.4) fL Immature Gran % (Auto) % Neut % (Auto) % Lymph % (Auto) % [place] % (Auto) % Eos % (Auto) % Baso % (Auto) % Immature Gran # (Auto) (0.00-0.02) K/uL Neut # (Auto) (1.4-6.5) K/uL Lymph # (Auto) (1.2-3.4) K/uL [place] # (Auto) (0.11-0.59) K/uL Eos # (Auto) (0-0.5) K/uL Baso # (Auto) (0-0.2) K/uL PT (9.0-12.0) Seconds INR (0.9-1.1) APTT (21.0-31.0) Seconds PTT Ratio Sodium 139 (136-145) mmol/L Potassium 3.8 (3.5-5.1) mmol/L Chloride 108 H (98-107) mmol/L Carbon Dioxide 25 (21-32) mmol/L Anion Gap 6.0 (3-11) BUN 11 (7-18) mg/dl Creatinine 1.08 (0.6-1.4) mg/dl Est Cr Clr Drug Dosing 116.1 ml/min Est GFR ( Amer) 99.7 Est GFR (Non-Af Amer) 86.0 BUN/Creatinine Ratio 10.6 (10-20) Glucose 131 H (70-99) mg/dl Calcium 9.4 (8.5-10.1) mg/dl Total Bilirubin 1.1 H (0.2-1) mg/dl AST 10 L (15-37) U/L ALT 25 (12-78) U/L Alkaline Phosphatase 74 (45-117) U/L Total Protein 7.0 (6.4-8.2) gm/dl Albumin 3.1 L (3.4-5.0) gm/dl Globulin 3.9 (2.5-4.0) gm/dl Albumin/Globulin Ratio 0.8 L (0.9-2) Lipase 60 L (73-393) U/L (1) Diverticulitis large intestine Diverticulitis bleeding: without bleeding Diverticulitis complication: with perforation and abscess Qualified Code(s): K57.20 - Diverticulitis of large intestine with perforation and abscess without bleeding
--- NOTE | 2019-03-25 11:37 | Anesthesiology Progress Note ---
Date of Service March 25, 2019 Anesthesia Post Procedure Vital Signs Vital Signs: Temp Pulse Pulse Pulse Resp BP BP 03/25/19 11:07 37.2 C 114 H 16 128/77 03/25/19 07:13 37 C 113 H 18 121/70 03/25/19 04:00 03/25/19 02:54 36.8 C 104 H 16 120/75 03/25/19 01:45 36.7 C 111 H 16 126/80 03/25/19 00:55 03/25/19 00:45 36.5 C 107 H 16 141/78 H 03/25/19 00:15 36.7 C 108 H 16 134/82 03/24/19 23:24 37.5 C 103 H 18 03/24/19 23:21 37.5 C 108 H 18 03/24/19 23:08 113 H 16 03/24/19 23:03 114 H 16 03/24/19 23:01 102 H 16 03/24/19 22:35 108 H 16 03/24/19 22:26 37.3 C 103 H 16 03/24/19 18:35 37.2 C 97 H 20 03/24/19 18:33 16 03/24/19 18:15 88 16 03/24/19 18:10 88 14 03/24/19 18:00 89 17 136/79 03/24/19 17:50 89 19 03/24/19 17:40 85 23 03/24/19 17:32 103 H 19 03/24/19 17:31 85 28 H 142/76 H 03/24/19 17:30 89 24 03/24/19 17:20 96 H 18 03/24/19 17:10 84 18 03/24/19 17:08 82 19 03/24/19 16:23 85 13 03/24/19 14:51 36.8 C 109 H 20 113/69 BP Pulse Ox 03/25/19 11:07 96 03/25/19 07:13 94 03/25/19 04:00 94 03/25/19 02:54 96 03/25/19 01:45 96 03/25/19 00:55 94 03/25/19 00:45 97 03/25/19 00:15 97 03/24/19 23:24 143/81 H 94 03/24/19 23:21 142/88 H 03/24/19 23:08 134/81 95 03/24/19 23:03 145/79 H 97 03/24/19 23:01 144/84 H 97 03/24/19 22:35 149/84 H 98 03/24/19 22:26 98 03/24/19 18:35 132/73 96 03/24/19 18:33 97 03/24/19 18:15 136/79 97 03/24/19 18:10 98 03/24/19 18:00 96 03/24/19 17:50 97 03/24/19 17:40 96 03/24/19 17:32 96 03/24/19 17:31 95 03/24/19 17:30 93 03/24/19 17:20 95 03/24/19 17:10 93 03/24/19 17:08 93 03/24/19 16:23 137/77 93 03/24/19 14:51 96 Pain Intensity Abdomen: Pain Intensity: 5 Notes Mental Status: see notes below (Pt sleeping at the time of visit) Nausea / Vomiting: adequately controlled Pain: adequately controlled Airway Patency, RR, SpO2: stable & adequate BP & HR: stable & adequate Hydration State: stable & adequate Anesthetic Complications: no major complications apparent
[2019-03-26] MEDS: ENOXAPARIN INJ 40 MG/0.4 ML SYR SQ SCH ×2 (00:55→21:43)
[2019-03-26] MEDS: SODIUM CHLORIDE 0.9% 1000ML 1,000 ML IV SCH ×5 (00:56→23:21)
[2019-03-26] MEDS: ALUMINUM/MAGNESIUM SUSP 30 ML UDC NG SCH ×3 (05:58→17:50)
[2019-03-26 05:59] LABS: Eosinophils # (auto) 0.06 K/uL (0-0.5); Eosinophils % (auto) 0.7 %; Hemoglobin 11.5 g/dL (14.0-18.0); Immature Granulocytes # (auto) 0.01 K/uL (0.00-0.02); Immature Granulocytes % (auto) 0.1 %; Lymphocytes # (auto) 0.94 K/uL (1.2-3.4); Lymphocytes % (auto) 11.5 %; Mean Corpuscular Hgb Conc 34.8 g/dL (32-36); Mean Corpuscular Volume 82.5 fL (80-100); Mean Platelet Volume 8.5 fL (7.4-10.4); Monocytes # (auto) 0.48 K/uL (0.11-0.59); Monocytes % (auto) 5.9 %; Neutrophils # (auto) 6.67 K/uL (1.4-6.5); Neutrophils % (auto) 81.8 %; Platelet Count 198 K/uL (130-400); RDW Coefficient of Variation 13.4 % (11.5-14.5); RDW Standard Deviation 41.1 fL (36.4-46.3); White Blood Count 8.16 K/uL (4.8-10.8)
[2019-03-26 06:14] LABS: Partial Thromboplastin Ratio 1.3
[2019-03-26 06:34] LABS: Creatinine Clr Calc Pharmacy 163.9 ml/min; Est GFR (African American) 131.1; Est GFR (Non-African American) 113.1
[2019-03-26] MEDS: HYDROmorphone HCL 0.5MG/ML 50 ML CASSETTE IV PRN ×4 (07:19→23:10)
[2019-03-26] MEDS: PIPERACILLIN/TAZOBACTAM 3.375 GM in DEXTROSE 5% 100 ML IV SCH ×2 (07:46→16:03)
--- NOTE | 2019-03-26 11:15 | Surgery Progress Note ---
Date of Service March 26, 2019 Assessment & Plan (1) Diverticulitis large intestine: Postoperative day #2 status post Pedro procedure Peristalsis is returning We will discontinue NG tube and start clear liquids with sips only Encouraged ambulation Continue [employer] for analgesia until we are sure that he will tolerate p.o. well Path is pending Present on Admission?: Yes Subjective Feels some better today Ambulated to chair Some gas present in ostomy bag Only small amount of stool Denies nausea and vomiting ARIES had 75 cc out yesterday and 90 and appears serosanguineous Physical Exam Gastrointestinal (Abdomen): Inspection/Auscultation: normal bowel sounds and + abdominal surgical incision (Clean and dry); abdomen not distended Percussion/Palpation: + abdomen tender (Incisional only) and abdomen soft Colostomy is pink and appears healthy Results & Data Vital Signs (Past 12 Hours) Vital Signs Temp Pulse Resp BP Pulse Ox 03/26/19 07:32 37.0 C 86 15 123/72 90 03/26/19 03:10 37.2 C 96 H 18 133/69 92 (1) Diverticulitis large intestine Diverticulitis bleeding: without bleeding Diverticulitis complication: with perforation and abscess Qualified Code(s): K57.20 - Diverticulitis of large intestine with perforation and abscess without bleeding
[2019-03-26] MEDS: ACETAMINOPHEN 500 MG TAB PO PRN (11:53)
[2019-03-27] MEDS: ALUMINUM/MAGNESIUM SUSP 30 ML UDC NG SCH (00:18)
[2019-03-27] MEDS: PIPERACILLIN/TAZOBACTAM 3.375 GM in DEXTROSE 5% 100 ML IV SCH ×3 (00:22→15:41)
[2019-03-27] MEDS: SODIUM CHLORIDE 0.9% 1000ML 1,000 ML IV SCH ×3 (05:45→22:02)
[2019-03-27] MEDS: ALUMINUM/MAGNESIUM SUSP 30 ML UDC PO SCH ×3 (05:46→18:57)
[2019-03-27] MEDS: ACETAMINOPHEN 500 MG TAB PO PRN (05:48)
[2019-03-27 06:53] LABS: Basophils # (auto) 0.01 K/uL (0-0.2); Basophils % (auto) 0.1 %; Eosinophils # (auto) 0.45 K/uL (0-0.5); Eosinophils % (auto) 6.2 %; Hemoglobin 10.8 g/dL (14.0-18.0); Immature Granulocytes # (auto) 0.01 K/uL (0.00-0.02); Immature Granulocytes % (auto) 0.1 %; Lymphocytes # (auto) 1.14 K/uL (1.2-3.4); Lymphocytes % (auto) 15.7 %; Mean Corpuscular Hgb Conc 34.8 g/dL (32-36); Mean Corpuscular Volume 82.7 fL (80-100); Mean Platelet Volume 8.2 fL (7.4-10.4); Monocytes # (auto) 0.45 K/uL (0.11-0.59); Monocytes % (auto) 6.2 %; Neutrophils % (auto) 71.7 %; Platelet Count 184 K/uL (130-400); RDW Coefficient of Variation 13.4 % (11.5-14.5); RDW Standard Deviation 40.8 fL (36.4-46.3); Red Blood Count 3.75 M/uL (4.7-6.1); White Blood Count 7.26 K/uL (4.8-10.8)
[2019-03-27] MEDS: HYDROmorphone HCL 0.5MG/ML 50 ML CASSETTE IV PRN (06:58)
[2019-03-27 07:21] LABS: Creatinine Clr Calc Pharmacy 187.6 ml/min; Est GFR (African American) 138.6; Est GFR (Non-African American) 119.6
--- NOTE | 2019-03-27 07:26 | Anesthesiology Progress Note ---
Date of Service March 27, 2019 Anesthesia Post Procedure Vital Signs Vital Signs: Temp Pulse Pulse Resp BP Pulse Ox 03/27/19 03:23 37.2 C 82 19 132/72 90 03/26/19 23:17 37.2 C 78 20 123/73 93 03/26/19 14:56 36.8 C 91 H 20 127/77 90 03/26/19 13:50 37.0 C 92 H 18 118/67 93 03/26/19 07:32 37.0 C 86 15 123/72 90 Pain Intensity Abdomen: Pain Intensity: 5 Notes Mental Status: alert / awake / arousable and participated in evaluation Patient Amnestic to Procedure: Yes Nausea / Vomiting: adequately controlled Pain: adequately controlled Airway Patency, RR, SpO2: stable & adequate BP & HR: stable & adequate Hydration State: stable & adequate Anesthetic Complications: no major complications apparent and Pt Satisfied with anesthetic care
[2019-03-27 07:28] LABS: Partial Thromboplastin Ratio 1.2; Partial Thromboplastin Time 31.4 Seconds (21.0-31.0)
[2019-03-27] MEDS ORDERED: OXYCODONE/ACETAMINOPHEN 5mg/325mg TAB PO PRN (13:04)
[2019-03-27] MEDS ORDERED: ACETAMINOPHEN 325 MG TAB PO PRN (13:04)
[2019-03-27] MEDS ORDERED: MoRPHine SULFATE 2 MG/ML CARP IV PRN (13:14)
[2019-03-27] MEDS ORDERED: MoRPHine SULFATE 4 MG/ML 1 ML CARP\\VIAL IV PRN (13:14)
--- NOTE | 2019-03-27 13:14 | Surgery Progress Note ---
Date of Service March 27, 2019 Assessment & Plan (1) Diverticulitis large intestine: Postoperative day #3 status post Pedro procedure -vitals stable, afebrile - +ostomy functioning - pain moderate but controlled - Culture showing E.coli, pansensitive - no leukocytosis - +mild nausea, no vomiting, tolerating clear liquids so far Plan: Discontinue BEARING MAKER, start PO Percocet and Tylenol prn pain, breakthrough IV Morphine prn Continue clear liquids for now. full liquids in am Encouraged ambulation Continue ken drain Continue IV fluids until taking PO well, decrease to 85 mls/hr Continue IV Zosyn Lovenox and SCDs for DVT prophylaxis Incentive spirometry Path is pending Dr. Powers has seen and examined pt, agrees with above Subjective feeling better today having abdominal pressure at incision site, not much pain. Using BEARING MAKER after ambulating and getting out of bed. Dizziness when standing up, slight nausea as well no vomiting little appetite, had coffee this morning for breakfast Physical Exam Constitutional: WD/WN, vitals as above no acute distress Respiratory: normal respiratory effort; no respiratory distress Gastrointestinal (Abdomen): Inspection/Auscultation: + abdominal surgical drain present (RLQ ken drain with serosanguineous output); abdomen not distended Percussion/Palpation: + abdomen tender (at incision site) and abdomen soft; no guarding and abdomen not rigid LLQ Ostomy: pink and functioning with stool present Skin: no rashes, warm and dry + incision (dressing with brownish drainage present, mixed with stool from ostomy) Psychiatric: Orientation: alert and oriented x 3 Affect: + flat affect Results & Data Vital Signs (Past 12 Hours) Vital Signs Temp Pulse Pulse Resp BP Pulse Ox 03/27/19 07:56 37.3 C 77 13 138/72 95 03/27/19 03:23 37.2 C 82 19 132/72 90 Laboratory Results 03/27/19 03/27/19 03/27/19 Range/Units 06:41 06:41 06:41 WBC 7.26 (4.8-10.8) K/uL RBC 3.75 L (4.7-6.1) M/uL Hgb 10.8 L (14.0-18.0) g/dL Hct 31.0 L (42-52) % MCV 82.7 (80-100) fL MCH 28.8 (25-34) pg MCHC 34.8 (32-36) g/dL RDW Std Deviation 40.8 (36.4-46.3) fL RDW Coeff of Sulema 13.4 (11.5-14.5) % Plt Count 184 (130-400) K/uL MPV 8.2 (7.4-10.4) fL Immature Gran % (Auto) 0.1 % Neut % (Auto) 71.7 % Lymph % (Auto) 15.7 % [place] % (Auto) 6.2 % Eos % (Auto) 6.2 % Baso % (Auto) 0.1 % Immature Gran # (Auto) 0.01 (0.00-0.02) K/uL Neut # (Auto) 5.20 (1.4-6.5) K/uL Lymph # (Auto) 1.14 L (1.2-3.4) K/uL [place] # (Auto) 0.45 (0.11-0.59) K/uL Eos # (Auto) 0.45 (0-0.5) K/uL Baso # (Auto) 0.01 (0-0.2) K/uL APTT 31.4 H (21.0-31.0) Seconds PTT Ratio 1.2 Creatinine 0.69 (0.6-1.4) mg/dl Est Cr Clr Drug Dosing 187.6 ml/min Est GFR ( Amer) 138.6 Est GFR (Non-Af Amer) 119.6 (1) Diverticulitis large intestine Diverticulitis bleeding: without bleeding Diverticulitis complication: with perforation and abscess Qualified Code(s): K57.20 - Diverticulitis of large intestine with perforation and abscess without bleeding
[2019-03-27] MEDS: OXYCODONE/ACETAMINOPHEN 5mg/325mg TAB PO PRN ×2 (15:17→19:03)
[2019-03-27] MEDS: ENOXAPARIN INJ 40 MG/0.4 ML SYR SQ SCH (22:03)
[2019-03-28] MEDS: ALUMINUM/MAGNESIUM SUSP 30 ML UDC PO SCH ×5 (00:17→23:16)
[2019-03-28] MEDS: PIPERACILLIN/TAZOBACTAM 3.375 GM in DEXTROSE 5% 100 ML IV SCH ×4 (00:18→23:16)
[2019-03-28] MEDS: OXYCODONE/ACETAMINOPHEN 5mg/325mg TAB PO PRN ×4 (03:40→19:00)
[2019-03-28 06:47] LABS: Basophils # (auto) 0.02 K/uL (0-0.2); Basophils % (auto) 0.3 %; Eosinophils # (auto) 0.79 K/uL (0-0.5); Eosinophils % (auto) 11.2 %; Hematocrit (blood only) 32.1 % (42-52); Hemoglobin 11.3 g/dL (14.0-18.0); Immature Granulocytes # (auto) 0.03 K/uL (0.00-0.02); Immature Granulocytes % (auto) 0.4 %; Lymphocytes # (auto) 1.24 K/uL (1.2-3.4); Lymphocytes % (auto) 17.5 %; Mean Corpuscular Hgb Conc 35.2 g/dL (32-36); Mean Corpuscular Volume 81.7 fL (80-100); Mean Platelet Volume 8.2 fL (7.4-10.4); Monocytes # (auto) 0.41 K/uL (0.11-0.59); Monocytes % (auto) 5.8 %; Neutrophils # (auto) 4.59 K/uL (1.4-6.5); Neutrophils % (auto) 64.8 %; Platelet Count 206 K/uL (130-400); RDW Coefficient of Variation 13.1 % (11.5-14.5); Red Blood Count 3.93 M/uL (4.7-6.1); White Blood Count 7.08 K/uL (4.8-10.8)
[2019-03-28 07:24] LABS: BUN Creatinine Ratio 10.2 (10-20); Calcium 8.1 mg/dl (8.5-10.1); Creatinine Clr Calc Pharmacy 163.9 ml/min; Est GFR (African American) 131.1; Est GFR (Non-African American) 113.1; Potassium 3.5 mmol/L (3.5-5.1)
[2019-03-28] MEDS: SODIUM CHLORIDE 0.9% 1000ML 1,000 ML IV SCH (08:55)
--- NOTE | 2019-03-28 12:57 | Surgery Progress Note ---
Date of Service March 28, 2019 Assessment & Plan (1) Diverticulitis large intestine: Postoperative day #4 status post Pedro procedure -vitals stable, afebrile - +ostomy functioning - pain moderate but controlled - Culture showing E.coli, pansensitive - no leukocytosis - no nausea, no vomiting, tolerating full liquids so far Plan: Continue PO Percocet and Tylenol prn pain, breakthrough IV Morphine prn Continue full liquids for now. low residue diet in am Encouraged ambulation Continue ken drain Discontinue IV fluids Continue IV Zosyn Lovenox and SCDs for DVT prophylaxis Incentive spirometry Path is pending Dr. Powers has seen and examined pt, agrees with above Subjective feeling slightly more sore today ostomy bag leaked, just changed no n/v tolerated full liquids urinating without difficulty no chest pain/sob Physical Exam Constitutional: WD/WN, vitals as above no acute distress Respiratory: normal respiratory effort; no respiratory distress Gastrointestinal (Abdomen): Inspection/Auscultation: + abdominal surgical drain present (serosanguienous); abdomen not distended Percussion/Palpation: + abdomen tender (at incision site) and abdomen soft; no guarding and abdomen not rigid llq ostomy with + output, pink Skin: no rashes, warm and dry Psychiatric: A+Ox3, euthymic affect Results & Data Vital Signs (Past 12 Hours) Vital Signs Temp Pulse Resp BP Pulse Ox 03/28/19 07:11 36.9 C 73 20 131/75 95 Laboratory Results 03/28/19 03/28/19 Range/Units 06:34 06:34 WBC 7.08 (4.8-10.8) K/uL RBC 3.93 L (4.7-6.1) M/uL Hgb 11.3 L (14.0-18.0) g/dL Hct 32.1 L (42-52) % MCV 81.7 (80-100) fL MCH 28.8 (25-34) pg MCHC 35.2 (32-36) g/dL RDW Std Deviation 40.0 (36.4-46.3) fL RDW Coeff of Sulema 13.1 (11.5-14.5) % Plt Count 206 (130-400) K/uL MPV 8.2 (7.4-10.4) fL Immature Gran % (Auto) 0.4 % Neut % (Auto) 64.8 % Lymph % (Auto) 17.5 % [place] % (Auto) 5.8 % Eos % (Auto) 11.2 % Baso % (Auto) 0.3 % Immature Gran # (Auto) 0.03 H (0.00-0.02) K/uL Neut # (Auto) 4.59 (1.4-6.5) K/uL Lymph # (Auto) 1.24 (1.2-3.4) K/uL [place] # (Auto) 0.41 (0.11-0.59) K/uL Eos # (Auto) 0.79 H (0-0.5) K/uL Baso # (Auto) 0.02 (0-0.2) K/uL Sodium 141 (136-145) mmol/L Potassium 3.5 (3.5-5.1) mmol/L Chloride 109 H (98-107) mmol/L Carbon Dioxide 28 (21-32) mmol/L Anion Gap 4.0 (3-11) BUN 8 (7-18) mg/dl Creatinine 0.79 (0.6-1.4) mg/dl Est Cr Clr Drug Dosing 163.9 ml/min Est GFR ( Amer) 131.1 Est GFR (Non-Af Amer) 113.1 BUN/Creatinine Ratio 10.2 (10-20) Glucose 93 (70-99) mg/dl Calcium 8.1 L (8.5-10.1) mg/dl (1) Diverticulitis large intestine Diverticulitis bleeding: without bleeding Diverticulitis complication: with perforation and abscess Qualified Code(s): K57.20 - Diverticulitis of large intestine with perforation and abscess without bleeding
[2019-03-28] MEDS: ENOXAPARIN INJ 40 MG/0.4 ML SYR SQ SCH (21:44)
[2019-03-29] MEDS: ALUMINUM/MAGNESIUM SUSP 30 ML UDC PO SCH ×4 (05:35→23:53)
[2019-03-29] MEDS: OXYCODONE/ACETAMINOPHEN 5mg/325mg TAB PO PRN ×4 (06:09→23:53)
[2019-03-29] MEDS: PIPERACILLIN/TAZOBACTAM 3.375 GM in DEXTROSE 5% 100 ML IV SCH ×3 (07:24→23:52)
--- NOTE | 2019-03-29 07:53 | Surgery Progress Note ---
Date of Service March 29, 2019 Assessment & Plan (1) Diverticulitis large intestine: Postoperative day #5 status post Pedro procedure Progressing nicely Can advance to low fiber diet Strongly encouraged him to ambulate today especially in the hallways If he tolerates that diet can consider discharge for tomorrow Present on Admission?: Yes Subjective Postoperative day #5 status post Pedro procedure Had pain last night but that has resolved this morning Colostomy is functioning Has not been willing to ambulate in the hallways Urinating spontaneously, has not required straight cath Denies nausea and vomiting Tolerated full liquid diet ARIES drain with 50 to 75 cc/day of serosanguineous fluid Physical Exam Gastrointestinal (Abdomen): Inspection/Auscultation: normal bowel sounds and + abdominal surgical incision (Clean, dry and intact,); abdomen not distended Percussion/Palpation: + abdomen tender (Incisional only) and abdomen soft Colostomy is pink and functioning Results & Data Vital Signs (Past 12 Hours) Vital Signs Temp Pulse Pulse Resp BP Pulse Ox 03/29/19 07:31 36.9 C 64 12 126/76 97 03/28/19 23:29 37.0 C 68 16 122/76 94 (1) Diverticulitis large intestine Diverticulitis bleeding: without bleeding Diverticulitis complication: with perforation and abscess Qualified Code(s): K57.20 - Diverticulitis of large intestine with perforation and abscess without bleeding
[2019-03-29] MEDS: ENOXAPARIN INJ 40 MG/0.4 ML SYR SQ SCH (20:48)
[2019-03-30] MEDS: ALUMINUM/MAGNESIUM SUSP 30 ML UDC PO SCH ×2 (06:02→11:25)
--- NOTE | 2019-03-30 07:18 | Surgery Progress Note ---
Date of Service March 30, 2019 Assessment & Plan (1) Diverticulitis large intestine: Postoperative day #6 status post Pedro procedure Doing well Ready for discharge Discussed postoperative activity restrictions We will go home on antibiotics Follow-up in 10 to 14 days Discontinue ARIES prior to discharge Present on Admission?: Yes Subjective Postoperative day #6 status post Pedro procedure Doing well Ambulated better yesterday Tolerated soft diet Colostomy is functioning Denies nausea Physical Exam Gastrointestinal (Abdomen): Inspection/Auscultation: abdomen not distended Percussion/Palpation: abdomen soft; abdomen nontender Results & Data Vital Signs (Past 12 Hours) Vital Signs Temp Pulse Pulse Resp BP BP Pulse Ox 03/30/19 07:16 36.5 C 71 16 123/74 95 03/29/19 23:03 36.9 C 73 16 129/78 94 (1) Diverticulitis large intestine Diverticulitis bleeding: without bleeding Diverticulitis complication: with perforation and abscess Qualified Code(s): K57.20 - Diverticulitis of large intestine with perforation and abscess without bleeding
[2019-03-30] MEDS: PIPERACILLIN/TAZOBACTAM 3.375 GM in DEXTROSE 5% 100 ML IV SCH (07:34)
[2019-03-30] MEDS: OXYCODONE/ACETAMINOPHEN 5mg/325mg TAB PO PRN (07:44)
[2019-03-30 07:51] LABS: Hematocrit (blood only) 34.5 % (42-52); Mean Corpuscular Hgb Conc 34.8 g/dL (32-36); Mean Corpuscular Volume 81.8 fL (80-100); Mean Platelet Volume 8.3 fL (7.4-10.4); Platelet Count 231 K/uL (130-400); RDW Coefficient of Variation 13.3 % (11.5-14.5); RDW Standard Deviation 39.9 fL (36.4-46.3); Red Blood Count 4.22 M/uL (4.7-6.1); White Blood Count 7.12 K/uL (4.8-10.8)
[2019-03-30 08:19] LABS: Creatinine Clr Calc Pharmacy 160.2 ml/min; Est GFR (African American) 129.5; Est GFR (Non-African American) 111.7
--- NOTE | 2019-03-31 11:06 | Discharge Summary ---
Date of Service March 31, 2019 Admission HPI Per Admitting Provider This is a 38-year-old male who presented to the emergency room with a complaint of abdominal pain that began 3 days ago. The most severe discomfort is in the lower abdomen mostly in the midline but he has discomfort throughout. The discomfort is increasing in intensity and is now 10 out of 10. He has had diverticulitis about a year ago that was treated with antibiotics. He has not had colonoscopy. The pain was associated with nausea but he has not vomited. He thinks that he had a fever but he did not take his temperature. He has had soft stool last night which is unusual for him. His bowel habits are regular and he usually has formed stool. He had no melena or hematochezia. He does have burning on urination that he had not had before. He had dysuria. He is unsure as to whether or not he had hematuria. He thinks there may have been some blood when he last urinated. He denies pneumaturia. Principal Diagnosis Acute perforated sigmoid diverticulitis Discharge Data Allergies Allergy/AdvReac Type Severity Reaction Status Date / Time No Known Allergies Allergy Verified 03/24/19 18:42 Consultations 03/24/19 17:33 ED Decision to Admit Stat 03/27/19 17:07 Consult Case Management - Discharge Planning Routine Procedures Performed Operation Date: 03/24/19 18:15 Actual Procedures s Exploratory Laparotomy(Not Applicable) - Nicola Powers MD p Bowel Resection(Not Applicable) - Nicola Powers MD Ordered Studies 03/24/19 15:44 CT abd pelvis wo con Stat Hospital Course (1) Diverticulitis large intestine: Patient was taken to operating room from emergency department for exploratory laparotomy possible bowel resection adn possible ostomy by Dr. Powers. Patient found to have perforated sigmoid diverticulitis with abscess. Patient required Pugh's procedure wtih end colostomy. Patient tolerated procedure well and was transferred to medical/surgical floor for postoperative care. He was started on IV fluids, IV Morphine calciminer for pain, IV Zosyn, IV Zofran prn nausea, activity as tolerated, moisés drain to bulb suction, NGT to LIS, Garcia to gravity, Lovenox and SCDs for DVT prophylaxis. POD # 1 vitals stable, leukocytosis resolved. Garcia removed, NGT continued, FINANCIAL SPECIALIST continued. POD # 2 peristalsis returned, NGT was removed and start on sips of clears. POD # 3 good ostomy output, diet advanced to clears, FINANCIAL SPECIALIST discontinued and started on po percocet and breakthrough Morphine. POD # 4 diet advanced to fulls and then POD # 5 diet advanced to low fiber. Patient was discharged home on POD # 6. Moisés drain was removed. F/u surgical office in 1 week. Total Time Total Time Spent Total Time Spent (In Minutes): 30 Total Time Includes: Examination of the Patient, Discharge Planning and Medication Reconciliation Discharge Plan Discharge Items Patient Disposition: Home - Home Health Services Reason For Visit: PERFORATED SIGMOID DIVERTICULITIS Discharge Diagnosis: Same Discharge Goals: Decrease discomfort and Improve function Activity: Per 'Additional Instructions' section Non-emergency contact: Surgeon Call non-emergency contact if: your pain is not controlled, your pain is worsening, your pain is unusual for you, your pain is concerning for you, you have a fever, your temperature is above 101, your wound has increased redness, your wound has increased drainage and your wound pain has increased Follow-up/Referrals: Nathaniel Monreal III, MD [Primary Care Provider] - Diet: Regular Addtl Provider Instructions: ACTIVITY RECOMMENDATIONS: * Walk as much as possible. Walking and light activity encouraged multiple times daily to avoid blood clots from forming in your legs. * No heavy lifting (>10 lbs.) for at least 6 weeks. * No strenuous activity until cleared by surgeon SPECIAL CARE INSTRUCTIONS: * You may shower. Gently allow water to run over incision and pat dry. * Cover incision with dressing daily and change as needed to keep clean and dry. * Surgical charles will be removed in surgical office. * change ostomy bag as needed as well as appliance. * Call the surgeon's office with any questions or concerns - (ex. temperature higher than 101 degrees F, excessive bleeding or pain). MEDICATIONS: Resume previous medications unless instructed otherwise by your surgeon. * Ibuprofen 600 mg every 6 hours with food * Percocet 1 every 4 hours, as needed for pain * Percocet can cause constipation, if you feel you are getting constipated you can increase water intake as well as take OTC stool softener (Colace) daily while taking pain medication. * If you are sent home with an antibiotic, please finish entire course as prescribed No dietary restrictions but may want to increase diet as tolerated for the next few days to a week once you are discharged. Wound avoid dense meats. FOLLOW UP VISIT: If not already scheduled, please call the office to schedule a one week follow- up appointment. Office number Prescriptions: New oxycodone-acetaminophen [Percocet] 5-325 mg Tablet 1 tab PO Q4H PRN (Reason: pain) Qty: 15 RF: 0 amoxicillin-pot clavulanate [Augmentin] 875-125 mg tablet 1 tab PO BID Qty: 14 RF: 0 Continued acetaminophen [Tylenol Extra Strength] 500 mg Tablet 1,000 mg PO Q6H PRN (Reason: Pain) RF: 0 ibuprofen [Advil] 200 mg Tablet 400 mg PO Q6H PRN (Reason: Pain) RF: 0 Stand-Alone Forms: Call Back Authorization, [facility], [facility] Kr[facility]/Other Patient Handouts: Colostomy Pouch Change, Colostomy Stoma Care Discharge Orders: Discharge Order (Routine); Ordered 03/30/19 Ordered By: Nicola Powers Admission Data Admit Date/Time: 03/24/19 22:24 Attending Provider: Nicola Powers Admit Provider: Nicola Powers Primary Care Provider: Nathaniel Monreal III Other Providers: Nicola Powers Service: Surgical Services Other Interventions: Discharge Summary Assessment (RN) Last Done: 03/30/19 13:53 DC Date/Time DO NOT enter until pt leaves facility: 03/30/19 14:55
== END 2019-03-30 14:55 | disposition home health service (06) | DRG 331 ==
LOC: ED 14:46 → OR 18:33 → 3W 22:24